=== PATIENT | female | born 1930 | race Caucasian/White ===

== ENCOUNTER → 2017-11-03 | Outpatient (CLI) | payer MEDICARE, OTHER ==
[~2017-11-03] MED LIST: FOLIC ACID 11 MG/TA1 PO; GLUCOPHAGE500 MG/TAB PO; LIPITOR20 MG PO; METHOTREXA2.5 MG/TAB PO; SYNTHROID0.1 MG/TAB PO; TRIAM/HCTZ; TUMS500 MG PO; TYLENOL W/COD1 UDTAB PO
== END ==
LOC: COL.RAD 10:14
DX: M86.8X6 Other osteomyelitis, lower leg (principal); M54.5 Low back pain; G89.29 Other chronic pain; L97.922 Non-pressure chronic ulcer of unspecified part of left lower leg with fat layer exposed; L59.8 Other specified disorders of the skin and subcutaneous tissue related to radiation; Y84.2 Radiological procedure and radiotherapy as the cause of abnormal reaction of the patient, or of later complication, without mention of misadventure at the time of the procedure
CPT/HCPCS: A9585

== ENCOUNTER 2020-08-22 13:48 | Emergency (ER) | payer MEDICARE, OTHER ==
[~2020-08-22] VITALS: Ht 165.1 cm; Wt 44.5 kg
[2020-08-22 13:51] VITALS: TEMP 98.4
[2020-08-22 14:24] LABS: BASO % 0.5 % (0.0-2.0); EOS % 0.5 % (0-4.0); GRAN # 3.6 (1.4-6.5); GRAN % 64.4 % (42.2-75.2); HEMATOCRIT 40.9 % (37.0-47.0); HEMOGLOBIN 13.5 g/dl (12.5-16.0); LYMPH # 1.5 (1.2-3.4); LYMPH % 27.1 % (20.0-51.0); MEAN CELL VOLUME 89 fl (80.0-100.0); MEAN CORPUSCULAR HEMOGLOBIN 30 pg (27.0-31.0); MEAN CORPUSCULAR HGB CONC 33 g/dl (33.0-37.0); MEAN PLATELET VOLUME 11.3 fl (7.4-10.4); MONO # 0.4 (0.1-0.6); MONO % 7.1 % (1.7-9.3); PLATELET COUNT 143 K/mm3 (130-400); RED BLOOD COUNT 4.58 M/mm3 (4.10-5.30); REDCELL DISTRIBUTION WIDTH-CV 14.5 % (11.5-14.5)
[2020-08-22 14:36] LABS: COLLECTION METHOD CLEAN CATCH
[2020-08-22 14:45] LABS: MUCOUS Present /lpf; PH 6 (5-8); SQUAMOUS EPITHELIAL 0-2 /hpf; URINE APPEARANCE Clear; URINE BACTERIA None Seen /hpf; URINE BILIRUBIN Negative (NEGATIVE); URINE BLOOD 1+ (NEGATIVE); URINE COLOR Yellow; URINE GLUCOSE Negative (NEGATIVE); URINE KETONE Negative (NEGATIVE); URINE LEUKOCYTE ESTERASE Negative (NEGATIVE); URINE NITRATE Negative (NEGATIVE); URINE PROTEIN(semi-quant) Negative (NEGATIVE); URINE RBC 0-2 /hpf; URINE UROBILINOGEN Negative (NEGATIVE)
[2020-08-22 15:36] LABS: ALANINE AMINOTRANSFERASE 12 U/L (4-34); ALBUMIN 4.3 gm/dL (3.5-5.0); ALKALINE PHOSPHATASE 57 U/L (50-136); ANION GAP 5 mmol/L (7-16); AST,SGOT 21 U/L (15-37); BILIRUBIN,TOTAL 0.6 mg/dL (0.0-1.0); BLOOD UREA NITROGEN 17 mg/dL (7-17); CALCIUM 10.7 mg/dL (8.4-10.2); CARBON DIOXIDE 28 mmol/L (22-30); CHLORIDE 97 mmol/L (98-107); GLUCOSE 99 mg/dL (74-106); POTASSIUM 4.3 mmol/L (3.4-5.0); SODIUM 130 mmol/L (137-145); TOTAL PROTEIN 7.9 gm/dL (6.4-8.2)
[2020-08-22 15:55] LABS: TROPONIN-I < 0.012 ng/mL (0.000-0.035)
[2020-08-22 16:00] VITALS: BP 194/85; PULSE 87
== END 2020-08-22 16:15 | disposition home or self-care (01) ==
LOC: COL.ER 13:48
PROVIDERS: Family Medicine
DX: S00.93XA Contusion of unspecified part of head, initial encounter (principal); E11.9 Type 2 diabetes mellitus without complications; Z79.84 Long term (current) use of oral hypoglycemic drugs; W01.0XXA Fall on same level from slipping, tripping and stumbling without subsequent striking against object, initial encounter; Y92.009 Unspecified place in unspecified non-institutional (private) residence as the place of occurrence of the external cause

== ENCOUNTER → 2020-10-08 | Outpatient (CLI) | payer MEDICARE, OTHER | LOC: COL.RAD 12:00 | DX: J39.2 Other diseases of pharynx (principal) ==

== ENCOUNTER 2020-12-10 11:15 | Outpatient (RCR) | payer MEDICARE, OTHER | END 2020-12-30 | disposition home or self-care (01) | LOC: WSST | DX: R13.12 Dysphagia, oropharyngeal phase (principal) ==

== ENCOUNTER 2020-12-31 13:15 | Outpatient (RCR) | payer MEDICARE, OTHER | END 2021-01-22 11:12 | disposition home or self-care (01) | LOC: WSST 13:15 | DX: R13.12 Dysphagia, oropharyngeal phase (principal) ==